=== PATIENT | female | born 1965 | race Caucasian/White ===

== ENCOUNTER 2016-08-17 10:57 | Day surgery (SDC) | payer OTHER ==
[2016-08-16 18:22] VITALS: BMI 32.3
[2016-08-17] VITALS (23 sets, daily range): BP systolic 106–150; BP diastolic 54–75; PULSE 74–92; RESP 11–26; Ht 165.1 cm; Wt 90.3 kg
[~2016-08-17] VITALS: Ht 165.1 cm; Wt 90.3 kg
[~2016-08-17 10:57] MED LIST: CEFTRIAXONE 1 GM/NS 50 ML IVPB ONE; HYDR-3720 PO
[2016-08-17] MEDS ORDERED: PROPOFOL 20 ML ONE ×2 (12:29→13:46)
--- NOTE | 2016-08-17 12:29 | HPN ---
Date/Time of Note Date/Time of Note DATE: 08/17/16 TIME: 12:28 Interval H&P Admission Note Pt. seen H&P reviewed: No system changes SEUN AGUILERA MD Aug 17, 2016 12:29
[2016-08-17] MEDS ORDERED: FENTAnyl 50 MCG/ML VIAL ONE ×3 (12:30→13:00)
[2016-08-17] MEDS ORDERED: MIDAZOLAM 1 MG/ML 2 ML INJ ONE (12:30)
[2016-08-17] MEDS ORDERED: CIPROFLOXACIN 400MG/D5W 200 ML ONE (12:47)
[2016-08-17] MEDS ORDERED: IOHEXOL 300MG/ML 30 ML BTL ONE (12:59)
[2016-08-17] MEDS ORDERED: LIDOCAINE 2% 20 ML UROJET SYRINGE ONE (13:04)
[2016-08-17] MEDS ORDERED: SUCCINYLCHOLINE CHLORIDE 100 MG/5 ML SYG IV ONE (13:05)
[2016-08-17] MEDS ORDERED: ACETAMINOPHEN 1000MG/100ML IV 100 ML ONE (13:05)
[2016-08-17] MEDS ORDERED: ROCURONIUM 50 MG INJ ONE (13:05)
[2016-08-17] MEDS ORDERED: DEXAMETHASONE 4 MG/ML 1 ML INJ ONE (13:27)
[2016-08-17] MEDS ORDERED: ONDANSETRON 4 MG INJ ONE (13:27)
[2016-08-17] MEDS ORDERED: METOCLOPRAMIDE 10 MG INJ ONE (13:27)
[2016-08-17] MEDS ORDERED: KETOROLAC 30 MG INJ ONE (13:27)
[2016-08-17] MEDS ORDERED: ONDANSETRON 4 MG INJ IV PRN (13:30)
[2016-08-17] MEDS ORDERED: HYDROmorphONE (0.2 MG/ML) 10ML SYG IV PRN ×3 (13:30)
[2016-08-17] MEDS ORDERED: FENTAnyl 50 MCG/ML VIAL IV PRN ×2 (13:30)
[2016-08-17] MEDS ORDERED: morphine (1 MG/ML) 10ML SYRINGE IV PRN ×3 (13:30)
[2016-08-17] MEDS ORDERED: DIPHENHYDRAMINE 50 MG INJ IV PRN (13:30)
[2016-08-17] MEDS ORDERED: EPHEDrine SULFATE 50 MG/5 ML SYG IV PRN (13:30)
[2016-08-17] MEDS ORDERED: LABETALOL HCL 20MG INJ IV PRN (13:30)
[2016-08-17] MEDS ORDERED: OXYCODONE/ACETAMINOPHEN (5/325) TAB PO PRN ×2 (13:30)
[2016-08-17] MEDS ORDERED: MEPERIDINE 25 MG INJ IV PRN (13:30)
[2016-08-17] MEDS ORDERED: hydrALAzine 20 MG INJ IV PRN (13:30)
[2016-08-17] MEDS ORDERED: METOCLOPRAMIDE 10 MG INJ IV PRN (13:30)
[2016-08-17] MEDS ORDERED: HYDROCODONE/APAP (5/325) TAB PO PRN (15:00)
--- NOTE | 2016-08-17 15:23 | RADRPT ---
PROCEDURE: X-ray fluoroscopy guidance CLINICAL INDICATION: RT LITHOTRIPSY/JJ STENT RM 5 O.R. TECHNIQUE: Fluoroscopic guidance was utilized for intraoperative procedure. COMPARISON: None. FINDINGS: Fluoroscopic guidance was utilized for intraoperative procedure. 151 seconds of fluoroscopy time wa s utilized for the procedure. 12 x-ray images were obtained during the procedure. An appropriately positioned right ureteral stent is noted. IMPRESSION: X-ray fluoroscopic guidance utilized for intraoperative procedure. Appropriately positioned right ureteral stent. Please see procedure note details. RPTAT: EE Physician Iker Date Time Electronically viewed and signed by Physician Iker on 08/17/2016 15:23 RA/
[2016-08-17] MEDS: FENTAnyl 50 MCG/ML VIAL IV PRN ×3 (15:30→15:54)
--- NOTE | 2016-08-17 15:40 | OPR ---
DATE OF OPERATION: 08/17/2016 PREOPERATIVE DIAGNOSIS: Distal right ureteral stones. POSTOPERATIVE DIAGNOSIS: Distal right ureteral stones. OPERATION PERFORMED: Cystoscopy, right ureteroscopy, laser lithotripsy, removal of stone fragments and insertion of right ureteral JJ stent 6-Slovenian x 20 cm long. TECHNIQUE: The patient was brought to the operating room. General anesthesia was induced. Time out was done. The patient was identified by her name, date and the procedure and the site of the procedure. The patient received 400 mg of Cipro IV at the start of the procedure. The patient was positioned in the lithotomy position. The genital area was prepped and draped in usual sterile manner. The fluoroscopy was done and then the stones in the distal right ureter were identified. Once the cystoscope was introduced into the bladder, urine was collected for culture and sensitivity. Then, the right ureteral orifice was identified and then cannulated with a 5-Slovenian open ended and through that, I advanced the Zip wire 0.035. As I advanced it, it goes to the level of the stone and bounced back. It would not go beyond it. The stone was somehow occluding the ureter almost completely. So I advanced open-ended to that level and then removed the zip wire and then I injected 2% lidocaine gel into that area to lubricate it as well as to anesthetize it. Then I passed the zip wire again into the open-ended and with some manipulation, I was able to pass it all the way up to the kidney. Once I passed it into the kidney, then on that I advanced open-ended and once I reached the kidney, I kept the open-ended in place and removed the Zip wire and then I passed the 0.035 sensor wire into the open ended all the way up to the kidney and removed the open- ended as the sensor wire is more stiff and will stay in place and it would not slide during the procedure. Then, I used the rigid short ureteroscope and advanced it into the ureter. I first saw the stone and then started breaking it with the laser; however, the light was not good and tried to increase the light. It does not and it was at the maximum. It was too taut and the monitors started telling me white pattern is incomplete even though we completed it at the start of the procedure. Tried another cord, it would not work. Then I had to use another monitor from [employer] rather than [employer] and with that, I was able to a whiteout white and balance properly and I was able to go up the ureter with the ureteroscope. It was a very nice vision and then again the stone was visualized and broken into pieces. I basketed the stone fragments and I had to laser the stone again. In fact, the stone was impacted into the wall. I had to basically laser the wall to deliver the stone out of the wall and the stone fragments came out. Then I did basket all the stone fragments and to clear the ureter from all the stone fragments. At that moment once the stone fragments were all cleared from the ureter, I did go up the ureter all the way up and there were no more stone fragments. Then, I removed the ureteroscope, reintroduced the cystoscope into the bladder on the safety wire and inserted a 6-Slovenian x 20 cm long JJ stent and had its proximal end curling into the kidney, distal end curling into the bladder. The distal end is attached to a string that was taped to the patient's right groin. I did put this scope back into the bladder and drained all the stone fragments and then drained them out of the bladder and sent them for pathology. The patient tolerated the procedure well and was transferred to recovery room in stable and satisfactory condition. Dictated By: SEUN FLORIAN/MICHELLE Conf#: [id number] DID#: [id number] MARCY
== END 2016-08-17 17:58 | disposition home or self-care (01) ==
LOC: SDS 10:57
PROVIDERS: ATTEND Urology
DX: N20.1 Calculus of ureter (principal); E66.9 Obesity, unspecified; Z68.33 Body mass index [BMI] 33.0-33.9, adult
CPT/HCPCS: 52356; 74430; 87086; 88300; C2617; J0131; J0330; J0696; J0744; J1100; J1885; J2175; J2250; J2405; J2765; J3010; Z7512; Z7610; Q9967

== ENCOUNTER 2017-03-09 10:35 | Day surgery (SDC) | payer OTHER ==
[2017-03-09] VITALS (14 sets, daily range): BP systolic 87–153; BP diastolic 51–69; PULSE 74–89; RESP 15–21; Ht 165.1 cm; Wt 93.8 kg
[~2017-03-09] VITALS: Ht 165.1 cm; Wt 93.8 kg
[~2017-03-09 10:35] MED LIST changes: +ACETAMINOPHEN 1000 MG/100 ML IVPB ONE; -CEFTRIAXONE 1 GM/NS 50 ML IVPB ONE; +PROPOFOL 1000 MG INJ ONE
[2017-03-09] MEDS ORDERED: IOHEXOL 300MG/ML 30 ML BTL ONE (12:11)
[2017-03-09] MEDS ORDERED: LIDOCAINE 2% (SDV) 5 ML INJ ONE (12:16)
[2017-03-09] MEDS ORDERED: ROCURONIUM 50 MG INJ ONE (12:16)
[2017-03-09] MEDS ORDERED: PROPOFOL 20 ML ONE (12:16)
[2017-03-09] MEDS ORDERED: MIDAZOLAM 1 MG/ML 2 ML INJ ONE (12:17)
[2017-03-09] MEDS ORDERED: FENTAnyl 50 MCG/ML VIAL ONE (12:17)
[2017-03-09] MEDS ORDERED: ONDANSETRON 4 MG INJ ONE (12:18)
[2017-03-09] MEDS ORDERED: DEXAMETHASONE 4 MG/ML 1 ML INJ ONE (12:18)
--- NOTE | 2017-03-09 12:22 | HPN ---
Date/Time of Note Date/Time of Note DATE: 03/09/17 TIME: 12:21 Interval H&P Admission Note Pt. seen H&P reviewed: No system changes SEUN AGUILERA MD Mar 09, 2017 12:22
[2017-03-09] MEDS ORDERED: CEFTRIAXONE 1 GM/NS 50 ML IVPB ONE (13:00)
[2017-03-09] MEDS ORDERED: morphine 10 MG INJ ONE (13:47)
[2017-03-09] MEDS ORDERED: ONDANSETRON 4 MG INJ IV PRN (14:00)
[2017-03-09] MEDS ORDERED: KETOROLAC 30 MG INJ IV PRN (14:00)
[2017-03-09] MEDS ORDERED: EPHEDrine SULFATE 50 MG/5 ML SYG IV PRN (14:00)
[2017-03-09] MEDS ORDERED: METOCLOPRAMIDE 10 MG INJ IV PRN (14:00)
[2017-03-09] MEDS ORDERED: hydrALAzine 20 MG INJ IV PRN (14:00)
[2017-03-09] MEDS ORDERED: TRIMETHOBENZAMIDE 100 MG/ML VIAL IM PRN (14:00)
[2017-03-09] MEDS ORDERED: OXYCODONE/ACETAMINOPHEN (5/325) TAB PO PRN ×2 (14:00)
[2017-03-09] MEDS ORDERED: FENTAnyl 50 MCG/ML VIAL IV PRN ×3 (14:00)
--- NOTE | 2017-03-09 14:18 | OPR ---
Date/Time of Note Date/Time of Note DATE: 03/09/17 TIME: 14:07 Operative Report Preoperative Diagnosis Right ureteral and renal stones Postoperative Diagnosis Right ureteral and renal stones Operation/Procedure Performed Cystoscopy right ureteral pyeloscopy, laser lithotripsy 2 stones in the right ureter and right kidney. Surgeon see signature line Vp [employer] None Anesthesia Type: general Anesthesiologist: AMANDA CASAREZ Estimated Blood Loss: none Transfusion none Specimen Stone fragments from the right ureter, stones from the right ureter, stones from right kidney, urine for culture and sensitivity from bladder, right kidney 2 Grafts/Implants none Tubes/Drains JJ stent 6 Cuban by 22 cm right ureter Complications none Pt Condition Post Procedure: stable Disposition: PACU Indications Right ureteral and renal stones Procedure Description The patient was brought to the operating room and given general endotracheal anesthesia. The patient was positioned in the lithotomy position. Timeout was done the patient was identified by her name birthdate the procedure and the side of the procedure. #21 Cuban cystoscope was introduced into the bladder and urine was collected for culture and sensitivity. the right ureteral orifice was visualized and a stone was seen at the ureterovesical junction. Retrograde pyelogram was done. A 0.035 zip wire was passed into the right ureter all the way up to the kidney. Then a 0.035 sensor wire was passed into the distal ureter but it would not advance up to the kidney therefore I removed it and remove the cystoscope and used to the zip wire to advance on it a dual lumen catheter. That was advanced under fluoroscopy all the way up to the kidney. once in the kidney I collected urine for culture and sensitivity. Then I passed the sensor wire through the second lumen all the way up to the kidney. The dual-lumen was removed leaving the [address] The sensor wire was used as a safety wire and the zip wire was used to advance the rigid ureteroscope and it into the ureter. The rigid ureteroscope was then advanced into the ureter the stone in the distal ureter was visualized then broken using the holmium laser and the fragments basketed with a basket. Then I advanced the ureteroscope and the ureter and she did have multiple other stones which were basketed as well and removed I was able to advance the ureteroscope all the way up to the kidney without difficulty. Then I decided to look into her kidney. I removed the rigid ureteroscope and the past the zip wire again into the kidney and on the zip wire I inserted an access sheath 11 x 13 mm diameter and 28 cm long. Through the access sheath I advanced the digital flexible ureteroscope all the way up to the kidney and inspected the kidney. The urine in the kidney was cloudy and had sediment therefore I aspirated this cloudy urine and send it for culture and sensitivity. I did flush the kidney multiple times to get all the cloudy urine out of there where stones in the upper pole calyx and in the lower pole calyx and the middle pole calyx. I basketed all of these out of the kidney. At the end the access sheath was removed and I reintroduced the cystoscope on the safety wire and inserted a 6 Cuban by 22 cm long JJ stent, had its proximal end curling into the kidney and the distal end curling into the bladder. The distal and was attached to a string that was taped to her right groin using 2 pieces of Tegaderm. The patient tolerated the procedure well and was transferred to the recovery room in stable and satisfactory condition. SEUN AGUILERA MD Mar 09, 2017 14:18
[2017-03-09] MEDS ORDERED: HYDROCODONE/APAP (5/325) TAB PO PRN (14:30)
--- NOTE | 2017-03-09 15:09 | RADRPT ---
PROCEDURE: Intraoperative imaging of the abdomen and pelvis with fluoroscopy. CLINICAL INDICATION: Abdominal pain. Intraoperative. TECHNIQUE: 22 images of the abdomen and pelvis were obtained in the operating room with an image i ntensifier. No radiologist was in attendance. Fluoroscopy time is 136 seconds. COMPARISON: 08/17/2016 FINDINGS: Images demonstrate instrumentation of the right ureter and placement of a right ureteral double pigt ail stent. IMPRESSION: 1. Satisfactory intraoperative imaging of the abdomen and pelvis. RPTAT: QQ .Yury Moran MD, MD Date Time Electronically viewed and signed by .Yury Moran MD, on 03/09/2017 15:09 .R/
== END 2017-03-09 16:43 | disposition home or self-care (01) ==
LOC: SDS 10:35
PROVIDERS: ATTEND Urology
DX: N20.2 Calculus of kidney with calculus of ureter (principal); I10 Essential (primary) hypertension; Z87.891 Personal history of nicotine dependence; Z88.0 Allergy status to penicillin
CPT/HCPCS: 52356; 74420; 84703; 87086; 88300; C2617; J0131; J0696; J1100; J2250; J2270; J2405; J2765; J3010; Q9967; Z7512; Z7610